=== PATIENT | male | born 1945 | race Caucasian/White ===

== ENCOUNTER 2016-08-14 15:36 | Emergency (ER) | payer BC, MEDICARE ==
[~2016-08-14] VITALS: Ht 175.3 cm; Wt 93.0 kg
[~2016-08-14 15:36] MED LIST: CYCL-36 PO; DICL75 PO; FISH1000 PO; IBUP-232 PO; OMEP20CA5 PO; TAB-TAB PO; TEMA30CA PO; [UNRECOGNIZED DRUG - CODE] PO
[2016-08-14 15:40] VITALS: BP 142/80; PULSE 79; RESP 17; TEMP 98; O2SAT 96
[2016-08-14] MEDS ORDERED: NAPR500T PO (15:54)
[2016-08-14] MEDS ORDERED: OMEP20TA PO (15:54)
[2016-08-14] MEDS ORDERED: TEMA30CA PO (15:54)
--- NOTE | 2016-08-14 16:01 | PD ---
HPI Chief Complaint: Laceration/Skin Injury Time Seen by Provider: 15:55 Travel History International Travel<30 days: No Contact w/Intl Traveler<30days: No Traveled to known affect area: No History of Present Illness HPI 70 year male presents emergency department for evaluation of left index finger laceration. Patient reports he was working with sheet metal and the sharp edge cut his finger. He has full range of motion of the finger. He has normal sensation of the finger. Bleeding is well controlled. He has no other medical complaints. Tetanus status up-to-date. [facility] Past Medical History Medical History: Denies Significant Hx Diminished Hearing: No GERD: Yes Respiratory: Yes (SEASONAL ALLERGIES) Immunizations Current: Yes Tetanus Vaccination: < 5 Years Influenza Vaccination: Yes Social History Alcohol Use: Yes (BEER OCCAS.) Tobacco Use: No Substance Use: No Allergies-Medications (Allergen,Severity, Reaction): Coded Allergies: Hydrocodone (Verified Allergy, Mild, NAUSEA AND VOMITING, 08/14/16) Reported Meds & Prescriptions Reported Meds & Active Scripts Active Reported Naproxen 500 Mg Tab 500 Mg PO BID PRN Omeprazole 20 Mg Tab 20 Mg PO DAILY Temazepam 30 Mg Cap 30 Mg PO HS PRN Review of Systems Except as stated in HPI: all other systems reviewed are Neg Physical Exam Narrative GENERAL: Well-nourished, well-developed patient. SKIN: Focused skin assessment warm/dry. One and half centimeter laceration proximal left index finger dorsal aspect HEAD: Normocephalic. EYES: No scleral icterus. No injection or drainage. CARDIOVASCULAR: Regular rate and rhythm without murmurs, gallops, or rubs. RESPIRATORY: Breath sounds equal bilaterally. No accessory muscle use. GASTROINTESTINAL: Abdomen soft, non-tender, nondistended. MUSCULOSKELETAL: No cyanosis, or edema. Left index: One and half centimeter laceration proximal left index finger dorsal aspect. No tendon injury visualized. Full range of motion against resistance. Normal sensation and 2 point discrimination in the digit. Bleeding well controlled. Data Data Last Documented VS Vital Signs Date Time Temp Pulse Resp B/P Pulse Ox O2 Delivery O2 Flow Rate FiO2 08/14/16 15:40 98.0 79 17 142/80 96 MDM Medical Decision Making Medical Screen Exam Complete: Yes Emergency Medical Condition: Yes Medical Record Reviewed: Yes Differential Diagnosis Finger laceration, less likely tendon laceration Narrative Course 70 year old male presents emergency department for evaluation of left index finger laceration caused by sheet metal 2 hours ago. Physical exam reveal 1-1/ 2 cm laceration dorsal aspect left index finger. No tendon injury visualized. Patient is full range of motion and normal sensation of the digit. Laceration repair performed. Wound care instructions discussed with patient. Patient agrees to follow up primary care provider for reevaluation. Suture removal in 7 -10 days. Procedures Procedure Narrative LACERATION LOCATION: Left index finger LENGTH: 1.5 cm NUMBER OF STITCHES/MOLLY: [-] REPAIR: The area of the laceration was prepped with Betadine and sterilely draped. The laceration was infiltrated with [1% lidocaine]. The wound was copiously irrigated and explored without evidence of foreign body, tendon injury or neurovascular injury. The wound was closed using 4-0 nylon. This was a single layer repair. A sterile dressing was applied. The patient was advised to keep the dressing clean and dry. Patient tolerated the procedure well. Diagnosis Primary Impression: Finger laceration Qualified Code: S61.211A - Laceration of left index finger without foreign body without damage to nail, initial encounter Referrals: Primary Care Physician Patient Instructions: General Instructions, Laceration (ED) Additional Instructions: Do not submerge the wound in water. Showering is okay. Sutures need to be removed in 10-14 days. Return to the emergency department if he developed new or worsening symptoms such as increased pain, redness, drainage at the site. Disposition: 01 DISCHARGE HOME Condition: Stable Yulissa Hernandez Aug 14, 2016 16:01
== END 2016-08-14 16:29 | disposition home or self-care (01) ==
LOC: PHEFT 15:36
DX: S61.211A Laceration without foreign body of left index finger without damage to nail, initial encounter (principal); W26.8XXA Contact with other sharp object(s), not elsewhere classified, initial encounter; K21.9 Gastro-esophageal reflux disease without esophagitis
CPT/HCPCS: 12001

== ENCOUNTER 2016-11-23 14:00 | Emergency (ER) | payer MEDICARE ==
[~2016-11-23] VITALS: Ht 177.8 cm; Wt 81.3 kg
[~2016-11-23 14:00] MED LIST changes: -CYCL-36 PO; -DICL75 PO; -FISH1000 PO; -IBUP-232 PO; +NAPR500T PO; -OMEP20CA5 PO; +OMEP20TA PO; -TAB-TAB PO; -[UNRECOGNIZED DRUG - CODE] PO
[2016-11-23 14:13] VITALS: BP 157/79; PULSE 109; RESP 16; TEMP 98.3; O2SAT 95
[2016-11-23] MEDS ORDERED: OMEGCAP PO (14:20)
[2016-11-23] MEDS ORDERED: LIDOCAINE HCL 1% 50 ML VIAL INFIL ONE (14:30)
--- NOTE | 2016-11-23 14:44 | PD ---
HPI Chief Complaint: Laceration/Skin Injury Time Seen by Provider: 14:14 Travel History International Travel<30 days: No Contact w/Intl Traveler<30days: No Traveled to known affect area: No History of Present Illness HPI 8-year-old male presents to the emergency room for evaluation of laceration to his right hand that occurred just prior to arrival. Patient was using sheet metal when he slipped and accidentally cut the inner digital webspace between the secondary fingers of the right hand. States he applied pressure and came straight to the emergency room. He denies loss of range of motion. He is not on blood thinners. Last tetanus was within 5 years. PFSH Past Medical History Arthritis: Yes Diminished Hearing: No GERD: Yes Respiratory: Yes (SEASONAL ALLERGIES) Immunizations Current: Yes Tetanus Vaccination: < 5 Years Influenza Vaccination: Yes Social History Alcohol Use: Yes (BEER OCCAS.) Tobacco Use: No Substance Use: No Allergies-Medications (Allergen,Severity, Reaction): Coded Allergies: hydrocodone (Unverified Allergy, Mild, NAUSEA AND VOMITING, 11/23/16) Reported Meds & Prescriptions Reported Meds & Active Scripts Active Reported [place]-3 Fish Oil/Vitamin (Fish Oil-Cholecalciferol) Unknown Strength Cap Unknown Dose PO DAILY Naproxen 500 Mg Tab 500 Mg PO BID PRN Omeprazole 20 Mg Tab 20 Mg PO DAILY Temazepam 30 Mg Cap 30 Mg PO HS PRN Review of Systems Except as stated in HPI: all other systems reviewed are Neg Physical Exam Narrative GENERAL: Well-nourished, well-developed male in no acute distress. Afebrile. Ambulatory. SKIN: Focused skin assessment warm/dry. There is a 1 cm laceration between the second and third fingers on the dorsal aspect. There is a 1 cm superficial laceration on the proximal, dorsal second finger. Nonbleeding. HEAD: Normocephalic. EYES: No scleral icterus. No injection or drainage. NECK: Supple, trachea midline. No JVD or lymphadenopathy. CARDIOVASCULAR: Regular rate and rhythm without murmurs, gallops, or rubs. RESPIRATORY: Breath sounds equal bilaterally. No accessory muscle use. MUSCULOSKELETAL: No cyanosis, or edema. Full range of motion of the right hand. Less than 2 second capillary refill distally. Data Data Last Documented VS Vital Signs Date Time Temp Pulse Resp B/P (MAP) Pulse Ox O2 Delivery O2 Flow Rate FiO2 11/23/16 14:16 16 11/23/16 14:13 98.3 109 157/79 (105) 95 Orders Orders Lidocaine 1% Inj (50 Ml) (Xylocaine 1% I (11/23/16 14:30) Wound Care (11/23/16 14:20) MDM Medical Decision Making Medical Screen Exam Complete: Yes Emergency Medical Condition: Yes Medical Record Reviewed: Yes Differential Diagnosis Laceration, contusion, abrasion, avulsion Narrative Course 71-year-old male presents to the emergency room for evaluation of a laceration between the second and third fingers of the right hand as well as on the proximal, dorsal phalanx of the second finger that occurred just prior to arrival. Patient accidentally cut himself on sheet metal. Patient's are superficial without neurovascular or tendon injury. Tetanus is up-to-date. Laceration was thoroughly cleansed and repaired, see procedure note because the patient discharged with wound care instructions and told to follow-up the primary care physician or return for worsening symptoms. He understands and agrees to plan. Procedures Procedure Narrative LACERATION LOCATION: Interdigital web space of the second and third fingers of the right hand LENGTH: 1 cm NUMBER OF STITCHES/MOLLY: 2 simple interrupted REPAIR: The area of the laceration was prepped with Betadine and sterilely draped. The laceration was infiltrated with 1% lidocaine. The wound was copiously irrigated and explored without evidence of foreign body, tendon injury or neurovascular injury. The wound was closed using 5-0 Prolene. This was a single layer repair. A sterile dressing was applied. The patient was advised to keep the dressing clean and dry. Patient tolerated the procedure well. LACERATION LOCATION: Second dorsal proximal phalanx. LENGTH: 1 cm NUMBER OF STITCHES/MOLLY: 2 simple interrupted REPAIR: The area of the laceration was prepped with Betadine and sterilely draped. The laceration was infiltrated with 1% lidocaine. The wound was copiously irrigated and explored without evidence of foreign body, tendon injury or neurovascular injury. The wound was closed using 5-0 Prolene. This was a single layer repair. A sterile dressing was applied. The patient was advised to keep the dressing clean and dry. Patient tolerated the procedure well. Diagnosis Primary Impression: Finger laceration Qualified Codes: S61.210A - Laceration without foreign body of right index finger without damage to nail, initial encounter Additional Impression: Hand laceration Qualified Codes: S61.411A - Laceration without foreign body of right hand, initial encounter Referrals: Primary Care Physician Additional Instructions: Keep wound clean and dry. Apply triple antibiotic ointment daily. Sutures out in 10 days. Follow-up with a primary care physician. Return to the emergency room for worsening symptoms. Disposition: 01 DISCHARGE HOME Condition: Stable Calli Kevin Nov 23, 2016 14:44
== END 2016-11-23 15:16 | disposition home or self-care (01) ==
LOC: PHEFT 14:00
DX: S61.210A Laceration without foreign body of right index finger without damage to nail, initial encounter (principal); S61.411A Laceration without foreign body of right hand, initial encounter; W26.8XXA Contact with other sharp object(s), not elsewhere classified, initial encounter; M19.90 Unspecified osteoarthritis, unspecified site; K21.9 Gastro-esophageal reflux disease without esophagitis
CPT/HCPCS: 12001

== ENCOUNTER 2017-02-27 20:50 | Emergency (ER) | payer MEDICARE ==
[~2017-02-27] VITALS: Ht 175.3 cm; Wt 85.0 kg
[~2017-02-27 20:50] MED LIST changes: -NAPR500T PO; +NAPR500T2 PO; +OMEGCAP PO; -OMEP20TA PO; +OMEP20TA93 PO
[2017-02-27 20:52] VITALS: BP 184/93; PULSE 102; RESP 16; TEMP 97.6; O2SAT 96
[2017-02-27] MEDS ORDERED: TAMS0.4C4 PO (21:00)
[2017-02-27] MEDS ORDERED: KETO10 PO (21:00)
[2017-02-27] MEDS ORDERED: SODIUM CHLOR 0.9% 1000 ML INJ 1,000 ML IV SCH (21:05)
[2017-02-27] MEDS ORDERED: SODIUM CHLORIDE 0.9% FLUSH 10 ML FLUSH IV FLUSH PRN (21:15)
[2017-02-27] MEDS ORDERED: ONDANSETRON HCL 4 MG/2 ML VIAL IVP ONE (21:15)
[2017-02-27] MEDS ORDERED: MORPHINE SULFATE 4 MG/ML INJ IV PUSH ONE (21:15)
--- NOTE | 2017-02-27 21:25 | PD ---
HPI Chief Complaint: Flank/Kidney Pain Time Seen by Provider: 21:05 Travel History International Travel<30 days: No Contact w/Intl Traveler<30days: No Traveled to known affect area: No History of Present Illness HPI This 71-year-old man, presents emergency department complaining of flank pain and vomiting and feeling poorly. Symptoms started abruptly Wednesday morning, about 4 days ago. He said worsening pain and vomiting since. He was seen at the to [facility] urgent care yesterday and diagnosed with a kidney stone based on ultrasound and a plain film. He did see the urologist RADHA and was placed on Toradol, and Flomax. Despite this he said worsening pain and vomiting and so comes to the emergency department today. History Past Medical History Medical History: Denies Significant Hx Tetanus Vaccination: < 5 Years Influenza Vaccination: Yes Social History Alcohol Use: Yes (BEER OCCAS.) Tobacco Use: No Allergies-Medications (Allergen,Severity, Reaction): Coded Allergies: hydrocodone (Unverified Allergy, Mild, NAUSEA AND VOMITING, 02/27/17) Reported Meds & Prescriptions Reported Meds & Active Scripts Active Zofran Odt (Ondansetron Odt) 4 Mg Tab 4 Mg SL Q8HR PRN Hydrocodone-Acetaminophen 5-325 mg Tab 1 Tab PO Q4H PRN Reported Tamsulosin (Tamsulosin HCl) 0.4 Mg Cap 0.4 Mg PO HS Ketorolac (Ketorolac Tromethamine) 10 Mg Tab 10 Mg PO BID [place]-3 Fish Oil/Vitamin (Fish Oil-Cholecalciferol) Unknown Strength Cap Unknown Dose PO DAILY Omeprazole 20 Mg Tab 20 Mg PO DAILY Temazepam 30 Mg Cap 30 Mg PO HS PRN Review of Systems Except as stated in HPI: all other systems reviewed are Neg Physical Exam Narrative GENERAL: Well-appearing 71-year-old man, appears uncomfortable but nontoxic. SKIN: Focused skin assessment, little bit clammy. No rash. HEAD: Atraumatic. Normocephalic. NECK: Trachea midline. No JVD. CARDIOVASCULAR: Regular rate and rhythm. No murmur appreciated. RESPIRATORY: No accessory muscle use. Clear to auscultation. Breath sounds equal bilaterally. GASTROINTESTINAL: Abdomen soft, non-tender, nondistended. Hepatic and splenic margins not palpable. MUSCULOSKELETAL: No obvious deformities. No edema. NEUROLOGICAL: Awake and alert. No obvious cranial nerve deficits. Motor grossly within normal limits. Normal speech. PSYCHIATRIC: Appropriate mood and affect; insight and judgment normal. Data Data Last Documented VS Vital Signs Date Time Temp Pulse Resp B/P (MAP) Pulse Ox O2 Delivery O2 Flow Rate FiO2 02/27/17 21:59 16 02/27/17 21:56 98 Room Air 02/27/17 20:52 97.6 102 Orders Orders Complete Blood Count With Diff (02/27/17 21:05) Comprehensive Metabolic Panel (02/27/17 21:05) Lipase (02/27/17 21:05) Urinalysis - C+S If Indicated (02/27/17 21:05) Ct Abd/Pel W/O Iv Contrast (02/27/17 21:05) Iv Access Insert/Monitor (02/27/17 21:05) Ecg Monitoring (02/27/17 21:05) Oximetry (02/27/17 21:05) Morphine Inj (Morphine Inj) (02/27/17 21:15) Ondansetron Inj (Zofran Inj) (02/27/17 21:15) Sodium Chlor 0.9% 1000 Ml Inj (Ns 1000 M (02/27/17 21:05) Sodium Chloride 0.9% Flush (Ns Flush) (02/27/17 21:15) Morphine Inj (Morphine Inj) (02/27/17 21:49) Sodium Chlor 0.9% 1000 Ml Inj (Ns 1000 M (02/28/17 00:00) Ondansetron Inj (Zofran Inj) (02/28/17 00:45) Ed Discharge Order (02/28/17 02:02) Labs Laboratory Tests Test 02/27/17 21:25 02/28/17 00:40 White Blood Count 11.1 TH/MM3 Red Blood Count 4.43 MIL/MM3 Hemoglobin 13.7 GM/DL Hematocrit 40.1 % Mean Corpuscular Volume 90.7 FL Mean Corpuscular Hemoglobin 30.9 PG Mean Corpuscular Hemoglobin Concent 34.1 % Red Cell Distribution Width 13.2 % Platelet Count 194 TH/MM3 Mean Platelet Volume 7.9 FL Neutrophils (%) (Auto) 87.8 % Lymphocytes (%) (Auto) 6.0 % Monocytes (%) (Auto) 6.1 % Eosinophils (%) (Auto) 0.0 % Basophils (%) (Auto) 0.1 % Neutrophils # (Auto) 9.8 TH/MM3 Lymphocytes # (Auto) 0.7 TH/MM3 Monocytes # (Auto) 0.7 TH/MM3 Eosinophils # (Auto) 0.0 TH/MM3 Basophils # (Auto) 0.0 TH/MM3 CBC Comment DIFF FINAL Differential Comment Blood Urea Nitrogen 24 MG/DL Creatinine 1.41 MG/DL Random Glucose 155 MG/DL Total Protein 6.9 GM/DL Albumin 3.4 GM/DL Calcium Level 8.7 MG/DL Alkaline Phosphatase 77 U/L Aspartate Amino Transf (AST/SGOT) 19 U/L Alanine Aminotransferase (ALT/SGPT) 31 U/L Total Bilirubin 0.5 MG/DL Sodium Level 137 MEQ/L Potassium Level 4.0 MEQ/L Chloride Level 103 MEQ/L Carbon Dioxide Level 24.4 MEQ/L Anion Gap 10 MEQ/L Estimat Glomerular Filtration Rate 50 ML/MIN Lipase 71 U/L Urine Color YELLOW Urine Turbidity CLEAR Urine pH 6.5 Urine Specific [place] 1.026 Urine Protein TRACE mg/dL Urine Glucose (UA) TRACE mg/dL Urine Ketones 10 mg/dL Urine Occult Blood NEG Urine Nitrite NEG Urine Bilirubin NEG Urine Urobilinogen LESS THAN 2.0 MG/DL Urine Leukocyte Esterase NEG Urine RBC 6 /hpf Urine WBC 1 /hpf Urine Mucus FEW /lpf Microscopic Urinalysis Comment CULT NOT INDICATED MDM Medical Decision Making Medical Screen Exam Complete: Yes Emergency Medical Condition: Yes Interpretation(s) LABS: CBC unremarkable. Mild leukocytosis. CMP remarkable for mildly elevated BUN/creatinine. Lipase normal. CT pelvis: 6 x 3 mm proximal right ureteral calculus with mild right hydronephrosis. UA: Trace hematuria Differential Diagnosis Renal lithiasis, AAA, UTI, other Narrative Course Medical decision making INITIAL: 71-year-old man, no renal lithiasis, measuring 7 mm apparently on KUB. Treated with NSAIDs and Flomax. Worsening pain and vomiting. We'll check CT labs urine, treat opiates and antiemetics, reassess. Diagnosis Primary Impression: Renal lithiasis Additional Instructions: Continue Toradol as previously prescribed. Use Zofran as needed for nausea or vomiting. Use Lortab as needed for severe pain. Drink plenty of fluids stay well-hydrated. Follow-up with your urologist as planned. Return to the emergency department for any worsening vomiting, uncontrolled pain , fevers, or any other new or worsening symptoms. Med/Other Pt SpecificInfo: Prescription(s) given Scripts Ondansetron Odt (Zofran Odt) 4 Mg Tab 4 MG SL Q8HR Y for Nausea/Vomiting, #12 TAB 0 Refills Prov: Marc Monte MD 02/28/17 Hydrocodone-Acetaminophen (Hydrocodone-Acetaminophen) 5-325 mg Tab 1 TAB PO Q4H Y for PAIN, #20 TAB 0 Refills Prov: Marc Monte MD 02/28/17 Disposition: 01 DISCHARGE HOME Condition: Stable Marc Monte MD Feb 27, 2017 21:25
[2017-02-27] MEDS ORDERED: MORPHINE SULFATE 8 MG/ML INJ ONE (21:49)
[2017-02-27 21:54] LABS: AUTOMATED NEUTROPHIL # 9.8 TH/MM3 (1.8-7.7); BASOPHIL % 0.1 % (0.0-2.0); HEMATOCRIT 40.1 % (39.0-51.0); HEMOGLOBIN 13.7 GM/DL (13.0-17.0); LYMPHOCYTE # 0.7 TH/MM3 (1.0-4.8); MEAN CELL VOLUME 90.7 FL (80.0-100.0); MEAN CORPUSCULAR HEMOGLOBIN 30.9 PG (27.0-34.0); MEAN CORPUSCULAR HGB CONC 34.1 % (32.0-36.0); MEAN PLATELET VOLUME 7.9 FL (7.0-11.0); MONO % 6.1 % (0.0-8.0); MONOCYTE # 0.7 TH/MM3 (0-0.9); NEUT % 87.8 % (16.0-70.0); PLATELET COUNT 194 TH/MM3 (150-450); RED BLOOD COUNT 4.43 MIL/MM3 (4.50-5.90); RED CELL DISTRIBUTION WIDTH 13.2 % (11.6-17.2); WHITE BLOOD COUNT 11.1 TH/MM3 (4.0-11.0)
[2017-02-27 21:56] VITALS: O2SAT 98
[2017-02-27 21:59] VITALS: RESP 16
--- NOTE | 2017-02-27 22:17 | RADRPT ---
EXAM DATE/TIME: 02/27/2017 21:27 [place] COMPARISON: No previous studies available for comparison. INDICATIONS : Right flank pain. ORAL CONTRAST: No oral contrast ingested. RADIATION DOSE: 8.15 CTDIvol (mGy) MEDICAL HISTORY : Renal calculi. Gastroesophageal reflux disease. SURGICAL HISTORY : None. ENCOUNTER: Initial ACUITY: 1 day PAIN SCALE: 10/10 LOCATION: Right flank TECHNIQUE: Volumetric scanning of the abdomen and pelvis was performed. Using automated exposure control and ad justment of the mA and/or kV according to patient size, radiation dose was kept as low as reasonably achievable to obtain optimal diagnostic quality images. DICOM format image data is available electro nically for review and comparison. FINDINGS: LOWER LUNGS: The visualized lower lungs are clear. LIVER: Homogeneous density without lesion. There is no dilation of the biliary tree. No calcified gallston es. SPLEEN: Normal size without lesion. PANCREAS: Within normal limits. KIDNEYS: 6 x 3 mm calculus in the proximal right ureter 4 cm below the ureteropelvic junction. Mild right hydr onephrosis and proximal right hydroureter. Punctate 2-3 mm calculi are seen in the upper pole the rig ht kidney and upper pole of the left kidney. No ureteral calculi on the left. ADRENAL GLANDS: Within normal limits. VASCULAR: There is no aortic aneurysm. BOWEL/MESENTERY: No evidence of bowel dilatation. No free air or free fluid. Appendix within normal limits. ABDOMINAL WALL: Within normal limits. RETROPERITONEUM: There is no lymphadenopathy. BLADDER: No wall thickening or mass. REPRODUCTIVE: Within normal limits. INGUINAL: There is no lymphadenopathy or hernia. MUSCULOSKELETAL: Pars interarticularis defects of L5 along with degenerative findings in the lower lumbar spine. Mild osteoarthritic findings of the hips. CONCLUSION: 1. 6 x 3 mm proximal right ureteral calculus. Mild right hydronephrosis. 2. Punctate bilateral renal calculi. 3. 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 Christiano Gallego MD on February 27, 2017 at 22:09 Board Certified Radiologist. This report was verified electronically.
[2017-02-27 22:20] LABS: ALBUMIN 3.4 GM/DL (3.4-5.0); AST (GOT) 19 U/L (15-37); BICARBONATE 24.4 MEQ/L (21.0-32.0); BLOOD UREA NITROGEN 24 MG/DL (7-18); CALCIUM 8.7 MG/DL (8.5-10.1); CHLORIDE 103 MEQ/L (98-107); CREATININE 1.41 MG/DL (0.60-1.30); GLOMERULAR FILTRATION RATE 50 ML/MIN (>89); GLUCOSE,RANDOM 155 MG/DL (74-106); LIPASE 71 U/L (73-393); SODIUM (NA) 137 MEQ/L (136-145)
[2017-02-27 22:21] LABS: ALT (GPT) 31 U/L (12-78)
[2017-02-27 22:23] LABS: ALKALINE PHOSPHATASE 77 U/L (45-117); TOTAL BILIRUBIN ADULT 0.5 MG/DL (0.2-1.0); TOTAL PROTEIN 6.9 GM/DL (6.4-8.2)
[2017-02-28] MEDS ORDERED: SODIUM CHLOR 0.9% 1000 ML INJ 1,000 ML IV ONE
[2017-02-28] MEDS ORDERED: ONDANSETRON HCL 4 MG/2 ML VIAL IV ONE (00:45)
[2017-02-28 01:44] LABS: BILIRUBIN, URINE NEG (NEG); BLOOD, URINE NEG (NEG); GLUCOSE,URINE TRACE mg/dL (NEG); KETONE, URINE 10 mg/dL (NEG); MUCUS URINE FEW /lpf (OCC); NITRITE,URINE NEG (NEG); PH, URINE 6.5 (5.0-8.5); URINE COLOR YELLOW (YELLW/STRAW); URINE LEUKOCYTE ESTERASE NEG (NEG)
[2017-02-28] MEDS ORDERED: ZOFR4TAB3 SL (02:02)
[2017-02-28] MEDS ORDERED: HYDR-3516 PO (02:02)
== END 2017-02-28 02:20 | disposition home or self-care (01) ==
LOC: NEPE 20:50
DX: N13.2 Hydronephrosis with renal and ureteral calculous obstruction (principal); M51.36 Other intervertebral disc degeneration, lumbar region; Z88.5 Allergy status to narcotic agent; Z79.899 Other long term (current) drug therapy
CPT/HCPCS: 74176; 80053; 81001; 83690; 85025; 96361; 96374; 96375; 96376; 99285; J2270; J2405; J7030